=== PATIENT | male | born 1975 | race Two or more races ===

== ENCOUNTER 2019-01-07 05:56 | Outpatient (CLI) | payer BC, OTHER ==
[2019-01-07 09:48] LABS: BASOPHILS % (AUTO) 0.7 % (0.0-2.0); EOSINOPHILS # (AUTO) 0.1 K/uL (0.0-0.7); EOSINOPHILS % (AUTO) 2.4 % (0.0-7.0); HEMATOCRIT 46.5 % (36.7-47.1); HEMOGLOBIN 15.5 g/dL (12.5-16.3); LYMPHOCYTES # (AUTO) 1.6 K/uL (20.0-40.0); LYMPHOCYTES % (AUTO) 32.1 % (20.5-51.5); MEAN CORPUSCULAR HEMOGLOBIN 28.8 uug (23.8-33.4); MEAN CORPUSCULAR HGB CONC 33 g/dL (32.5-36.3); MONOCYTES # (AUTO) 0.3 K/uL (2.0-10.0); MONOCYTES % (AUTO) 6.9 % (0.0-11.0); NEUTROPHILS # (AUTO) 2.9 K/uL (1.8-8.9); NEUTROPHILS % (AUTO) 57.9 % (38.5-71.5); PLATELET COUNT (AUTO) 180 K/uL (152-348)
[2019-01-07 10:10] LABS: *BILIRUBIN,URIN NEGATIVE (NEGATIVE); *BLOOD, URINE NEGATIVE (NEGATIVE); *CLARITY,URINE CLEAR (CLEAR); *COLOR,URINE YELLOW (YELLOW); *KETONES,URINE NEGATIVE (NEGATIVE); *UROBILINOGEN,URINE 0.2 E.U./dl (NORMAL); LEUKOCYTE ESTERASE ,URINE NEGATIVE (NEGATIVE); NITRITE, URINE NEGATIVE (NEGATIVE); UGLUCOSE NEGATIVE (NEGATIVE)
[2019-01-07 10:14] LABS: BILIRUBIN,TOTAL 0.4 mg/dL (0.2-1.0); CREATININE 0.9 mg/dL (0.6-1.3); POTASSIUM 3.8 mmol/L (3.5-5.1); TOTAL PROTEIN, SERUM 7.7 g/dL (6.4-8.2)
[2019-01-07 10:37] LABS: THYROID STIMULATING HORMONE 1.976 mIU/mL (0.358-3.740)
== END 2019-01-07 23:59 | disposition home or self-care (01) ==
LOC: LAB 05:56
PROVIDERS: ATTEND Family Medicine
DX: Z00.01 Encounter for general adult medical examination with abnormal findings (principal); Z83.3 Family history of diabetes mellitus
CPT/HCPCS: 82306; 84443; 85025; 87086

== ENCOUNTER 2019-03-03 15:08 | Emergency (ER) | payer BC, OTHER ==
[~2019-03-03] VITALS: Ht 165.1 cm; Wt 90.7 kg
[2019-03-03] MEDS ORDERED: MORPHINE SULFATE 2 MG/1 ML DISP.SYRIN IV ONE (15:30)
[2019-03-03] MEDS ORDERED: IV NORMAL SALINE 1000 ML BAG IV ONE (15:30)
[2019-03-03] MEDS ORDERED: ONDANSETRON 4 MG/2 ML VIAL IV ONE (15:30)
[2019-03-03] MEDS ORDERED: PANTOPRAZOLE SODIUM 40 MG VIAL IV ONE (15:30)
[2019-03-03 15:36] LABS: BASOPHILS % (AUTO) 0.3 % (0.0-2.0); EOSINOPHILS % (AUTO) 0.1 % (0.0-7.0); HEMOGLOBIN 15.5 g/dL (12.5-16.3); LYMPHOCYTES # (AUTO) 0.6 K/uL (20.0-40.0); LYMPHOCYTES % (AUTO) 5.3 % (20.5-51.5); MEAN CORPUSCULAR HGB CONC 34 g/dL (32.5-36.3); MEAN CORPUSCULAR VOLUME 85.9 fL (73.0-96.2); MONOCYTES # (AUTO) 0.4 K/uL (2.0-10.0); MONOCYTES % (AUTO) 3.5 % (0.0-11.0); NEUTROPHILS # (AUTO) 11.1 K/uL (1.8-8.9); NEUTROPHILS % (AUTO) 90.8 % (38.5-71.5); PLATELET COUNT (AUTO) 160 K/uL (152-348); RED BLOOD CELL COUNT(AUTO) 5.35 MIL/uL (4.06-5.63); WHITE BLOOD COUNT (AUTO) 12.2 K/uL (3.6-10.2)
[2019-03-03] MEDS ORDERED: ONDANSETRON 4 MG/2 ML VIAL ONE ×2 (15:38→15:54)
[2019-03-03] MEDS ORDERED: MORPHINE SULFATE 2 MG/1 ML DISP.SYRIN ONE ×2 (15:38→15:55)
[2019-03-03] MEDS ORDERED: PANTOPRAZOLE SODIUM 40 MG VIAL ONE ×2 (15:38→15:55)
[2019-03-03 15:44] LABS: CREATININE 0.9 mg/dL (0.6-1.3); POTASSIUM 3.8 mmol/L (3.5-5.1)
[2019-03-03 15:49] LABS: BILIRUBIN,DIRECT 0.2 mg/dL (0.0-0.2); BILIRUBIN,TOTAL 1.1 mg/dL (0.2-1.0); TOTAL PROTEIN, SERUM 8.2 g/dL (6.4-8.2)
[2019-03-03] MEDS ORDERED: MAG HYDROX/AL HYDROX/SIMETH 30 ML LIQUID UDC PO ONE (16:30)
[2019-03-03] MEDS ORDERED: MAG HYDROX/AL HYDROX/SIMETH 30 ML LIQUID UDC ONE (16:31)
[2019-03-03] MEDS ORDERED: HYDROMORPHONE 1 MG/1 ML DISP.SYRIN ONE (17:20)
[2019-03-03] MEDS ORDERED: HYDROMORPHONE 1 MG/1 ML DISP.SYRIN IV ONE (17:30)
--- NOTE | 2019-03-03 18:03 | NUR ---
IV removed. Catheter intact and site benign. Pressure and 4x4 gauze applied to site. No bleeding noted.
[2019-03-03 18:04] VITALS: BP 113/65
== END 2019-03-03 18:05 | disposition home or self-care (01) ==
LOC: ER 15:08
DX: K29.70 Gastritis, unspecified, without bleeding (principal)
CPT/HCPCS: 36415; 71045; 76705; 80048; 80076; 83690; 84484; 85025; 93005; 96361; 96374; 96375; 99284; C9113 ×2; J1170; J2270; J2405 ×2; 70030-TC; A4663; J7030

== ENCOUNTER 2019-03-04 09:06 | Inpatient (IN) | payer BC, OTHER ==
[~2019-03-04] VITALS: Ht 175.3 cm; Wt 90.7 kg
[2019-03-04 09:31] LABS: EOSINOPHILS % (AUTO) 0.1 % (0.0-7.0); LYMPHOCYTES # (AUTO) 0.9 K/uL (20.0-40.0); LYMPHOCYTES % (AUTO) 6.8 % (20.5-51.5); NEUTROPHILS # (AUTO) 11.4 K/uL (1.8-8.9)
[2019-03-04 09:35] LABS: CREATININE 0.9 mg/dL (0.6-1.3)
[2019-03-04 09:41] LABS: BILIRUBIN,DIRECT 0.3 mg/dL (0.0-0.2); BILIRUBIN,TOTAL 1.2 mg/dL (0.2-1.0); TOTAL PROTEIN, SERUM 8.1 g/dL (6.4-8.2)
[2019-03-04 09:51] LABS: BASOPHILS % (AUTO) 0.2 % (0.0-2.0); HEMOGLOBIN 15.2 g/dL (12.5-16.3); MEAN CORPUSCULAR HEMOGLOBIN 29.2 uug (23.8-33.4); MEAN CORPUSCULAR HGB CONC 34 g/dL (32.5-36.3); MEAN CORPUSCULAR VOLUME 86.5 fL (73.0-96.2); MONOCYTES # (AUTO) 0.8 K/uL (2.0-10.0); MONOCYTES % (AUTO) 6.4 % (0.0-11.0); NEUTROPHILS % (AUTO) 86.5 % (38.5-71.5); PLATELET COUNT (AUTO) 177 K/uL (152-348); WHITE BLOOD COUNT (AUTO) 13.1 K/uL (3.6-10.2)
[2019-03-04] MEDS ORDERED: PIPERACILLIN SODIUM/TAZOBACTAM 3.375 G in IV DEXTROSE 5% 50 ML IV ONE (10:00)
[2019-03-04] MEDS ORDERED: PIPERACILLIN/TAZOBACTAM/D5W 50 ML IV ONE (10:00)
--- NOTE | 2019-03-04 10:02 | NUR ---
zayra flores talking to dr. estrada for surgical consult per pt request.
[2019-03-04 10:03] LABS: *BILIRUBIN,URIN NEGATIVE (NEGATIVE); *BLOOD, URINE NEGATIVE (NEGATIVE); *CLARITY,URINE CLEAR (CLEAR); *COLOR,URINE YELLOW (YELLOW); *KETONES,URINE 4+ (NEGATIVE); *UROBILINOGEN,URINE 0.2 E.U./dl (NORMAL); LEUKOCYTE ESTERASE ,URINE NEGATIVE (NEGATIVE); NITRITE, URINE NEGATIVE (NEGATIVE); PH,URINE 7.5 (5.0-8.0); UGLUCOSE NEGATIVE (NEGATIVE)
[2019-03-04 10:14] LABS: BACTERIA,URINE NONE SEEN /HPF (NONE SEEN); SQUAMOUS EPITHELIAL CELL,UR FEW /HPF (NONE SEEN); WBC,URINE 0-3 /HPF (0-3)
[2019-03-04] MEDS ORDERED: IV NORMAL SALINE 1000 ML BAG IV ONE (10:15)
--- NOTE | 2019-03-04 10:20 | NUR ---
report given to surgory rn. pt will be picked up at 1100 to go directly to surgory.
--- NOTE | 2019-03-04 10:43 | NUR ---
or crew at bedside to take the pt to surgory.
--- NOTE | 2019-03-04 10:46 | NUR ---
pt transfered to or in stable condition accompanied by .
[2019-03-04] MEDS ORDERED: ROCURONIUM BROMIDE 50 MG/5 ML VIAL IV ONE (11:00)
[2019-03-04] MEDS ORDERED: EPINEPHRINE IJ ONE (11:00)
[2019-03-04] MEDS ORDERED: BUPIVACAINE IJ ONE (11:00)
[2019-03-04] MEDS ORDERED: BUPIVACAINE/EPI PF 0.25% 10 ML VIAL IJ ONE (11:00)
[2019-03-04] MEDS ORDERED: HYDROMORPHONE 2 MG/1 ML DISP.SYRIN ONE (11:11)
[2019-03-04] MEDS ORDERED: MIDAZOLAM HCL 2 MG/2 ML VIAL ONE (11:11)
[2019-03-04] MEDS ORDERED: IV D5W-0.45% NS +20 KCL 1,000 ML IV ONE (12:39)
[2019-03-04] MEDS ORDERED: FENTANYL CITRATE 100 MCG/2 ML AMPUL ONE (12:49)
[2019-03-04 13:24] VITALS: BP 124/79
--- NOTE | 2019-03-04 13:30 | NUR ---
Admitted 43 year old male to [facility] with dx of acute appendicitis. Patient is post op appendectomy. AAOx4. No s/s of acute distress. 3 incison site noted on lower abdomen noted. Clean and dry, no s/s of infection. Receiving 2L via NC. Patient complaining of L lower abd pain; will medicate appropriately. IV on L AC #20 intact and patent. Initial assessments and admission packet completed. Plan of care initiated. Safety measures implemented. Will continue to monitor.
[2019-03-04] MEDS ORDERED: HYDROCODONE/APAP 5-325MG TABLET PO PRN (14:00)
[2019-03-04] MEDS: MORPHINE SULFATE 2 MG/1 ML DISP.SYRIN IV PRN ×3 (14:12→23:38)
[2019-03-04] MEDS ORDERED: IV 1/2NS 1000 ML 1,000 ML IV PRN (14:15)
[2019-03-04] MEDS ORDERED: ACETAMINOPHEN 325 MG TABLET PO PRN (14:15)
[2019-03-04] MEDS ORDERED: ONDANSETRON 4 MG/2 ML VIAL IV PRN (14:15)
[2019-03-04] MEDS ORDERED: IV D5W-0.45% NS +20 KCL 1,000 ML IV PRN (14:15)
[2019-03-04] MEDS ORDERED: ZOLPIDEM 5 MG TABLET PO PRN (14:15)
[2019-03-04 16:22] VITALS: BP 111/69
[2019-03-04] MEDS: PIPERACILLIN SODIUM/TAZOBACTAM 3.375 G in IV DEXTROSE 5% 50 ML IV SCH (17:58)
--- NOTE | 2019-03-04 19:30 | NUR ---
RECEIVED PT AWAKE, ALERT AND ORIENTEDX4. AT BEDSIDE. PT IN NO ACUTE DISTRESS.SAFETY AND COMFORT PROVIDED. WILL CONTINUE TO MONITOR.
[2019-03-04 20:35] VITALS: BP 99/66
[2019-03-05] MEDS: PIPERACILLIN SODIUM/TAZOBACTAM 3.375 G in IV DEXTROSE 5% 50 ML IV SCH ×2 (01:39→11:39)
[2019-03-05 06:51] LABS: BILIRUBIN,TOTAL 1.1 mg/dL (0.2-1.0); MAGNESIUM 2.4 mg/dL (1.8-2.4); PHOSPHOROUS 2.3 mg/dL (2.5-4.9); POTASSIUM 3.7 mmol/L (3.5-5.1); TOTAL PROTEIN, SERUM 7.4 g/dL (6.4-8.2)
[2019-03-05 07:00] LABS: BASOPHILS % (AUTO) 0.5 % (0.0-2.0); EOSINOPHILS # (AUTO) 0.1 K/uL (0.0-0.7); EOSINOPHILS % (AUTO) 0.7 % (0.0-7.0); HEMATOCRIT 42.6 % (36.7-47.1); HEMOGLOBIN 14.2 g/dL (12.5-16.3); LYMPHOCYTES # (AUTO) 1.7 K/uL (20.0-40.0); LYMPHOCYTES % (AUTO) 18.1 % (20.5-51.5); MEAN CORPUSCULAR HEMOGLOBIN 29.2 uug (23.8-33.4); MEAN CORPUSCULAR HGB CONC 33 g/dL (32.5-36.3); MEAN CORPUSCULAR VOLUME 87.7 fL (73.0-96.2); MONOCYTES # (AUTO) 0.6 K/uL (2.0-10.0); MONOCYTES % (AUTO) 6.4 % (0.0-11.0); NEUTROPHILS # (AUTO) 6.9 K/uL (1.8-8.9); NEUTROPHILS % (AUTO) 74.3 % (38.5-71.5); PLATELET COUNT (AUTO) 176 K/uL (152-348); RED BLOOD CELL COUNT(AUTO) 4.86 MIL/uL (4.06-5.63)
[2019-03-05] MEDS ORDERED: PANTOPRAZOLE SODIUM 40 MG TABLET.DR PO SCH (07:00)
--- NOTE | 2019-03-05 07:01 | NUR ---
PT SLEPT INTERMITTENTLY. PT IN NO ACUTE DISTRESS. PRESCRIBED MEDICATION GIVEN AND PT TOLERATED IT WELL. AT BEDSIDE. ONE PROTONIX WAS WASTED IT FELL ON THE FLOOR. REMOVED ONE PROTONIX GAIN IN THE PYXIS. SAFETY AND COMFORT PROVIDED. ALL NEEDS ARE MET. WILL ENDORSE ACCORDINGLY TO INCOMING NURSE FOR CONTINUITY OF CARE.
[2019-03-05 07:13] LABS: WHITE BLOOD COUNT (AUTO) 9.3 K/uL (3.6-10.2)
--- NOTE | 2019-03-05 07:30 | NUR ---
Patient calm and comfortable with no signs of distress; patient with stable vital signs ; patient will continue to be monitored.
[2019-03-05 11:57] VITALS: BP 104/68
[2019-03-05] MEDS ORDERED: KETOROLAC TROMETHAMINE 30 MG INJ ONE (14:46)
[2019-03-05] MEDS ORDERED: ONDANSETRON 4 MG/2 ML VIAL ONE (14:46)
[2019-03-05] MEDS ORDERED: PROPOFOL 200 MG/20 ML BOTTLE ONE (14:46)
[2019-03-05] MEDS ORDERED: LIDOCAINE-MPF 2% 5 ML VIAL ONE (14:46)
[2019-03-05] MEDS ORDERED: SUCCINYLCHOLINE CHLORIDE 200 MG/10 ML VIAL ONE (14:46)
[2019-03-05] MEDS ORDERED: GLYCOPYRROLATE 0.2 MG/ML VIAL ONE (14:48)
[2019-03-05] MEDS ORDERED: NEOSTIGMINE METHYLSULFATE 10 MG/10 ML VIAL ONE (14:48)
[2019-03-05] MEDS ORDERED: HYDR-3972 PO (15:06)
[2019-03-05] MEDS ORDERED: CEPH-570 PO (15:06)
[2019-03-05] MEDS ORDERED: NEUTRA PHOS PACKET PO ONE (15:30)
[2019-03-05 16:25] VITALS: BP 116/76
--- NOTE | 2019-03-05 17:00 | NUR ---
Patient discharged home in stable condition and stable vital signs ; patient with no signs of distress; patient educated on discharge instructions and verbalized understanding; patient left via private car with .
== END 2019-03-05 17:00 | disposition home or self-care (01) | DRG 342 ==
LOC: ER 09:07 → DS 10:42 → MEDSURG3 12:47
PROVIDERS: ADMIT Internal Medicine; ATTEND Internal Medicine
PROC: 0DTJ4ZZ Resection of Appendix, Percutaneous Endoscopic Approach (ICD-10-PCS; principal; 2019-03-04)
DX: K35.30 Acute appendicitis with localized peritonitis, without perforation or gangrene (principal); E87.1 Hypo-osmolality and hyponatremia; K76.0 Fatty (change of) liver, not elsewhere classified; K29.70 Gastritis, unspecified, without bleeding
CPT/HCPCS: 36415; 71045; 83605; 83690; 83735; 84100; 85025; 85730; 87040; 93005; A4663; G0378; J0330; J1170; J1885; J2250; J2270; J2405; J2543; J2710; J3010; J3490; J7030; J7060; L8699

== ENCOUNTER 2019-03-18 06:26 | Outpatient (CLI) | payer BC, OTHER ==
[~2019-03-18 06:26] MED LIST: CEPH-570 PO; HYDR-3972 PO
[2019-03-18 08:37] LABS: EOSINOPHILS # (AUTO) 0.3 K/uL (0.0-0.7); HEMOGLOBIN 15.3 g/dL (12.5-16.3); LYMPHOCYTES # (AUTO) 1.8 K/uL (20.0-40.0); MONOCYTES # (AUTO) 0.3 K/uL (2.0-10.0); NEUTROPHILS # (AUTO) 3.1 K/uL (1.8-8.9)
[2019-03-18 08:47] LABS: BASOPHILS % (AUTO) 0.8 % (0.0-2.0); EOSINOPHILS % (AUTO) 4.9 % (0.0-7.0); HEMATOCRIT 45.6 % (36.7-47.1); LYMPHOCYTES % (AUTO) 32.9 % (20.5-51.5); MEAN CORPUSCULAR HEMOGLOBIN 29.2 uug (23.8-33.4); MEAN CORPUSCULAR HGB CONC 34 g/dL (32.5-36.3); MONOCYTES % (AUTO) 5.9 % (0.0-11.0); NEUTROPHILS % (AUTO) 55.5 % (38.5-71.5); PLATELET COUNT (AUTO) 214 K/uL (152-348); RED BLOOD CELL COUNT(AUTO) 5.25 MIL/uL (4.06-5.63)
[2019-03-18 08:48] LABS: WHITE BLOOD COUNT (AUTO) 5.5 K/uL (3.6-10.2)
[2019-03-18 08:52] LABS: IRON, SERUM 73 ug/dL (50-175)
[2019-03-18 09:06] LABS: FERRITIN 526 ng/mL (26-388)
== END 2019-03-18 23:59 | disposition home or self-care (01) ==
LOC: LAB 06:26
PROVIDERS: ATTEND Family Medicine
DX: Z00.01 Encounter for general adult medical examination with abnormal findings (principal)
CPT/HCPCS: 36415; 83550; 85025